=== PATIENT | male | born 1950 | race Caucasian/White ===

== ENCOUNTER 2017-12-22 14:49 | Inpatient (IN) | payer OTHER, MEDICARE ==
[~2017-12-22] VITALS: Ht 193 cm; Wt 115.9 kg
[2017-12-22] MEDS ORDERED: PANTOPRAZOLE 80 MG in SODIUM CHLORIDE 0.9% 50 ML IVPB ONE (15:18)
[2017-12-22] MEDS ORDERED: PANTOPRAZOLE 80 MG in SODIUM CHLORIDE 0.9% 100 ML IV SCH (15:18)
[2017-12-22] MEDS ORDERED: SODIUM CHLORIDE 0.9% 1,000ML IVBOLUS ONE (15:30)
[2017-12-22] MEDS ORDERED: SODIUM CHLORIDE FLUSH 10ML SYR IVF ONE ×2 (15:30)
[2017-12-22 15:34] LABS: ALANINE AMINOTRANSFERASE 64 U/L (12-78); ALBUMIN 3.5 g/dL (3.4-5.0); ANION GAP 10 mmol/L (5-15); CALCIUM 8.4 mg/dL (8.5-10.1); CHLORIDE 111 mmol/L (98-107); CREATININE 1.09 mg/dL (0.7-1.3)
[2017-12-22 15:36] LABS: ALKALINE PHOSPHATASE 74 U/L (45-117); TOTAL PROTEIN 7.5 g/dL (6.4-8.2)
[2017-12-22 15:41] LABS: BASOPHILS # (AUTO) 0.03 x10^3/uL (0-0.1); BASOPHILS % (AUTO) 0 % (0-1); EOSINOPHILS # (AUTO) 0.03 x10^3/uL (0-0.4); EOSINOPHILS % (AUTO) 0 % (1-7); LYMPHOCYTES % (AUTO) 23 % (22-44); MD NO; MEAN CORPUSCULAR HEMOGLOBIN 32.3 pg (27.5-34.5); MEAN CORPUSCULAR HGB CONC 33.8 g/dL (33.2-36.2); MEAN CORPUSCULAR VOLUME 95.6 fL (81-97); MEAN PLATELET VOLUME 8.1 fL (7.4-10.4); MONOCYTES # (AUTO) 0.81 x10^3/uL (0.2-0.8); MONOCYTES % (AUTO) 8 % (2-9); NEUTROPHILS # (AUTO) 6.93 x10^3/uL (1.8-6.8); NEUTROPHILS % (AUTO) 69 % (42-75); PLATELET COUNT 261 x10^3/uL (130-400); RED BLOOD COUNT 3.83 x10^6/uL (4.38-5.82); RED CELL DISTRIBUTION WIDTH 14.4 % (9.4-14.8)
[2017-12-22 16:28] LABS: INTERNATIONAL NORMALIZED RATIO 1.14 (0.93-1.1); PROTHROMBIN TIME 11.7 Seconds (9.6-11.5)
[2017-12-22] MEDS: SODIUM CHLORIDE 0.9% 1,000 ML IV SCH ×2 (16:35→21:24)
[2017-12-22] MEDS ORDERED: SODIUM CHLORIDE 0.9% 1,000 ML IV ONE (16:35)
[2017-12-22] MEDS ORDERED: MIDAZOLAM 1 MG/ML, 2ML ONE (16:39)
[2017-12-22] MEDS ORDERED: FENTANYL PF 100 MCG/2ML ONE (16:40)
[2017-12-22] MEDS ORDERED: morphine SULFATE 10 MG/ML, 1ML IVPush PRN (17:00)
[2017-12-22] MEDS ORDERED: SODIUM CHLORIDE FLUSH 10ML SYR IVF PRN (17:00)
[2017-12-22] MEDS ORDERED: LABETALOL 5MG/ML, 20ML IVPush PRN (17:00)
[2017-12-22] MEDS: PANTOPRAZOLE 80 MG in SODIUM CHLORIDE 0.9% 100 ML IV SCH (17:00)
[2017-12-22] MEDS ORDERED: ONDANSETRON ODT 4 MG PO PRN (17:00)
[2017-12-22] MEDS ORDERED: HYDROcodone/APAP 5/325 TABLET PO PRN (17:00)
[2017-12-22] MEDS ORDERED: ONDANSETRON 2MG/ML, 2ML IVPush PRN (17:00)
[2017-12-22 17:02] LABS: FREE T4 (FREE THYROXINE) 0.78 ng/dL (0.76-1.46)
[2017-12-22] MEDS ORDERED: ERYTHROMYCIN IV SCH (17:30)
[2017-12-22] MEDS ORDERED: PANTOPRAZOLE 80 MG in SODIUM CHLORIDE 0.9% 50 ML IV ONE (17:30)
[2017-12-22] MEDS ORDERED: SODIUM CHLORIDE 0.9% IV SCH (17:30)
[2017-12-22] MEDS ORDERED: ONDANSETRON 2MG/ML, 2ML ONE (17:49)
[2017-12-22] MEDS ORDERED: ONDANSETRON 2MG/ML, 2ML IVPush ONE (18:00)
[2017-12-22 20:40] VITALS: BP 133/83
[2017-12-22 20:54] VITALS: BP 133/83
[2017-12-22] MEDS: SUCRALFATE 1 GM TABLET PO SCH (21:20)
[2017-12-22] MEDS: MISOPROSTOL 100 MCG TABLET PO SCH (21:20)
[2017-12-23] MEDS: PANTOPRAZOLE 80 MG in SODIUM CHLORIDE 0.9% 100 ML IV SCH ×2 (01:46→14:52)
[2017-12-23 03:13] VITALS: BP 109/67
[2017-12-23 05:21] LABS: BASOPHILS # (AUTO) 0.02 x10^3/uL (0-0.1); BASOPHILS % (AUTO) 0 % (0-1); EOSINOPHILS # (AUTO) 0.05 x10^3/uL (0-0.4); EOSINOPHILS % (AUTO) 1 % (1-7); LYMPHOCYTES # (AUTO) 1.51 x10^3/uL (1-3.4); LYMPHOCYTES % (AUTO) 22 % (22-44); MD NO; MEAN CORPUSCULAR HEMOGLOBIN 32.1 pg (27.5-34.5); MEAN CORPUSCULAR HGB CONC 33.8 g/dL (33.2-36.2); MEAN CORPUSCULAR VOLUME 95.2 fL (81-97); MEAN PLATELET VOLUME 7.6 fL (7.4-10.4); MONOCYTES # (AUTO) 0.62 x10^3/uL (0.2-0.8); MONOCYTES % (AUTO) 9 % (2-9); NEUTROPHILS # (AUTO) 4.86 x10^3/uL (1.8-6.8); NEUTROPHILS % (AUTO) 69 % (42-75); PLATELET COUNT 151 x10^3/uL (130-400); RED CELL DISTRIBUTION WIDTH 14.4 % (9.4-14.8)
[2017-12-23 05:28] LABS: ALANINE AMINOTRANSFERASE 45 U/L (12-78); ALBUMIN 2.8 g/dL (3.4-5.0); ANION GAP 7 mmol/L (5-15); CALCIUM 7.5 mg/dL (8.5-10.1); CHLORIDE 114 mmol/L (98-107); CREATININE 0.96 mg/dL (0.7-1.3)
[2017-12-23 05:30] LABS: ALKALINE PHOSPHATASE 55 U/L (45-117); TOTAL PROTEIN 5.9 g/dL (6.4-8.2)
[2017-12-23] MEDS: SODIUM CHLORIDE 0.9% 1,000 ML IV SCH ×2 (05:42→13:30)
[2017-12-23] MEDS ORDERED: EPINEPHRINE SYRINGE 0.1 MG/ML, 10ML ONE (07:19)
[2017-12-23 07:57] VITALS: BP 130/71
[2017-12-23] MEDS: MISOPROSTOL 100 MCG TABLET PO SCH ×2 (08:31→17:29)
[2017-12-23] MEDS: SUCRALFATE 1 GM TABLET PO SCH ×3 (08:31→17:29)
[2017-12-23 13:05] VITALS: BP 129/63
[2017-12-23 19:42] VITALS: BP 106/62
[2017-12-24 01:11] VITALS: BP 106/62
[2017-12-24] MEDS: PANTOPRAZOLE 80 MG in SODIUM CHLORIDE 0.9% 100 ML IV SCH (01:26)
[2017-12-24] MEDS: SODIUM CHLORIDE 0.9% 1,000 ML IV SCH (05:20)
[2017-12-24 07:55] VITALS: BP 105/62
[2017-12-24] MEDS ORDERED: MISOPROSTOL 200 MCG TABLET PO SCH (08:00)
[2017-12-24] MEDS ORDERED: PANTOPROZOLE 40MG TABLET PO SCH (08:00)
[2017-12-24] MEDS: SUCRALFATE 1 GM TABLET PO SCH ×2 (09:31→12:07)
[2017-12-24] MEDS ORDERED: PNEUMOCOCCAL 23 VACCINE IM-VACC ONE (13:30)
[2017-12-24 13:36] VITALS: BP 105/64
[2017-12-24] MEDS ORDERED: MISO200T PO (15:32)
[2017-12-24] MEDS ORDERED: SUCR1TAB33 PO (15:32)
[2017-12-24] MEDS ORDERED: PANT40TA5 PO (15:32)
== END 2017-12-24 16:24 | disposition home or self-care (01) | DRG 383 ==
LOC: ED 16:34 → EDIP 16:35 → ED 16:44 → 4WST 20:23 → DCLOUNGE 12-24 16:10
PROVIDERS: ADMIT Hospitalist; ATTEND Hospitalist
PROC: 0DB68ZX Excision of Stomach, Via Natural or Artificial Opening Endoscopic, Diagnostic (ICD-10-PCS; 2017-12-22)
PROC: 0W3P8ZZ Control Bleeding in Gastrointestinal Tract, Via Natural or Artificial Opening Endoscopic (ICD-10-PCS; principal; 2017-12-22 16:50)
DX: K26.9 Duodenal ulcer, unspecified as acute or chronic, without hemorrhage or perforation (principal); E43 Unspecified severe protein-calorie malnutrition; E87.2 Acidosis; D62 Acute posthemorrhagic anemia; K92.0 Hematemesis; D72.829 Elevated white blood cell count, unspecified; R73.9 Hyperglycemia, unspecified; B96.81 Helicobacter pylori [H. pylori] as the cause of diseases classified elsewhere; K29.70 Gastritis, unspecified, without bleeding; K21.9 Gastro-esophageal reflux disease without esophagitis; Z79.82 Long term (current) use of aspirin; Z68.31 Body mass index [BMI] 31.0-31.9, adult; Z87.11 Personal history of peptic ulcer disease
CPT/HCPCS: 36415; 80053; 83605; 83690; 83735; 84100; 84439; 85014; 85018; 85025; 85610; 85730; 86850; 86900; 88305; 90732; 93005; 96365; 96366; 96375; J2405; A4648; C9113; J7030

== ENCOUNTER 2019-02-06 07:22 | Outpatient (CLI) | payer OTHER, MEDICARE ==
[~2019-02-06 07:22] MED LIST: MISO200T PO; PANT40TA5 PO; SUCR1TAB33 PO
== END 2019-02-06 23:59 | disposition home or self-care (01) ==
LOC: CFH 07:22
DX: Z02.9 Encounter for administrative examinations, unspecified (principal)

== ENCOUNTER 2019-02-28 06:54 | Outpatient (CLI) | payer OTHER, MEDICARE | END 2019-02-28 23:59 | disposition home or self-care (01) | LOC: CFH 06:54 | DX: K74.60 Unspecified cirrhosis of liver (principal) | CPT/HCPCS: 76700 ==